=== PATIENT | male | born 1985 | race Caucasian/White ===

== ENCOUNTER 2023-10-10 13:41 | Inpatient (IN) | payer MEDICAID ==
[~2023-10-10] VITALS: Ht 180.3 cm; Wt 56.7 kg
[2023-10-10 15:40] LABS: BASOPHILS # (AUTO) 0.1 K/uL (0.0-0.2); EOSINOPHILS % (AUTO) 0.3 % (0.0-6.0); HEMATOCRIT 35 % (39-51); LYMPHOCYTES # (AUTO) 0.7 K/uL (0.8-4.8); LYMPHOCYTES % (AUTO) 11.5 % (20.0-44.0); MEAN CORPUSCULAR HEMOGLOBIN 31 PG (26.0-33.0); MEAN CORPUSCULAR HGB CONC 34 g/dl (31.0-36.0); MEAN CORPUSCULAR VOLUME 91 fL (80-96); MONOCYTES # (AUTO) 0.5 K/uL (0.1-1.30); NEUTROPHILS # (AUTO) 4.6 K/uL (1.8-8.9); NEUTROPHILS % (AUTO) 78.2 % (43.0-81.0); PLATELET COUNT (AUTO) 113 K/uL (150-450); RED BLOOD CELL COUNT(AUTO) 3.87 MIL/uL (4.5-6.0); RED CELL DISTRIBUTION WIDTH 14.6 % (11.5-15.0); WHITE BLOOD COUNT (AUTO) 5.9 K/uL (4.3-11.0)
[2023-10-10 15:50] LABS: CALCIUM, SERUM 8.6 mg/dL (8.5-10.1); CARBON DIOXIDE 29 mmol/L (21-32); CHLORIDE 86 mmol/L (98-107); CREATININE 0.6 mg/dL (0.6-1.3); GLUCOSE 149 mg/dL (74-106); POTASSIUM 2.9 mmol/L (3.5-5.1); SODIUM SERUM 129 mmol/L (136-145); UREA NITROGEN, BLOOD 10 mg/dL (7-18)
[2023-10-10 15:57] LABS: ALANINE AMINOTRANSFERASE 252 U/L (12-78); ALKALINE PHOSPHATASE 63 U/L (46-116); ASPARTATE AMINOTRANSFERASE 337 U/L (15-37); BILIRUBIN,DIRECT 0.6 mg/dL (0.0-0.2); BILIRUBIN,TOTAL 1.6 mg/dL (0.2-1.0); TOTAL PROTEIN, SERUM 7.4 g/dL (6.4-8.2)
[2023-10-10 15:59] LABS: LIPASE > 375 U/L (16-77)
[2023-10-10 16:01] LABS: INR 0.98 (0.91-1.10); PARTIAL THROMBOPLASTIN TIME 24.4 SEC (24.3-34.3); PROTHROMBIN TIME 10.4 SECS (9.2-11.1)
[2023-10-10] MEDS: IV NS 0.9% 1,000 ML BAG IV ONE (16:12)
[2023-10-10] MEDS ORDERED: METH36TA PO (16:40)
[2023-10-10] MEDS ORDERED: MAG HYDROX/AL HYDROX/SIMETH 30 ML UDC PO PRN (18:30)
[2023-10-10] MEDS ORDERED: MAGNESIUM HYDROXIDE 30 ML UDC PO PRN (18:30)
[2023-10-10] MEDS ORDERED: ONDANSETRON HCL/PF 4 MG/2 ML VIAL IVP PRN (18:30)
[2023-10-10 18:40] VITALS: BP 150/80; TEMP 98.6; O2SAT 98
[2023-10-10] MEDS: THIAMINE HCL 100 MG TABLET PO ONE (18:54)
[2023-10-10] MEDS: FOLIC ACID 1 MG TABLET PO ONE (18:54)
[2023-10-10] MEDS: LORAZEPAM 1 MG TABLET PO ONE (18:54)
[2023-10-10] MEDS: IV NS 0.9% 1,000 ML IV SCH (18:55)
[2023-10-10] MEDS: FAMOTIDINE (20 MG) 20 MG TABLET PO SCH (21:11)
[2023-10-10 22:00] VITALS: BP 140/82; TEMP 99.3; O2SAT 95
[2023-10-10] MEDS: LORAZEPAM 1 MG TABLET PO PRN (22:43)
[2023-10-11] VITALS: BP 138/87; TEMP 99.1; O2SAT 96
[2023-10-11 04:00] VITALS: BP 133/82; TEMP 99.1; O2SAT 96
[2023-10-11 06:47] LABS: BASOPHILS % (AUTO) 0.5 % (0.0-2.0); EOSINOPHILS # (AUTO) 0.1 K/uL (0.0-0.7); EOSINOPHILS % (AUTO) 1.8 % (0.0-6.0); HEMATOCRIT 27 % (39-51); HEMOGLOBIN 9.7 g/dL (13.5-17.5); LYMPHOCYTES # (AUTO) 0.7 K/uL (0.8-4.8); LYMPHOCYTES % (AUTO) 14.8 % (20.0-44.0); MEAN CORPUSCULAR HEMOGLOBIN 32 PG (26.0-33.0); MEAN CORPUSCULAR HGB CONC 36 g/dl (31.0-36.0); MEAN CORPUSCULAR VOLUME 91 fL (80-96); MONOCYTES # (AUTO) 0.3 K/uL (0.1-1.30); MONOCYTES % (AUTO) 7.2 % (2.0-12.0); NEUTROPHILS # (AUTO) 3.6 K/uL (1.8-8.9); NEUTROPHILS % (AUTO) 75.7 % (43.0-81.0); PLATELET COUNT (AUTO) 75 K/uL (150-450); RED BLOOD CELL COUNT(AUTO) 3.01 MIL/uL (4.5-6.0); RED CELL DISTRIBUTION WIDTH 14.6 % (11.5-15.0); WHITE BLOOD COUNT (AUTO) 4.8 K/uL (4.3-11.0)
[2023-10-11 07:14] LABS: CALCIUM, SERUM 8.2 mg/dL (8.5-10.1); CARBON DIOXIDE 28 mmol/L (21-32); CHLORIDE 93 mmol/L (98-107); CREATININE 0.6 mg/dL (0.6-1.3); GLUCOSE 105 mg/dL (74-106); MAGNESIUM 1.4 mg/dL (1.8-2.4); PHOSPHORUS 3.4 mg/dL (2.5-4.9); SODIUM SERUM 132 mmol/L (136-145); UREA NITROGEN, BLOOD 8 mg/dL (7-18)
[2023-10-11 07:20] LABS: LIPASE > 375 U/L (16-77); POTASSIUM 2.8 mmol/L (3.5-5.1)
[2023-10-11 07:43] LABS: CHOLESTEROL 142 mg/dL (<200); HDL CHOLESTEROL 74 mg/dL (40-60); LDL 43 mg/dL (0-99); THYROID STIMULATING HORMONE 1.724 uIU/mL (0.358-3.74); TRIGLYCERIDES 33 mg/dL (30-150)
[2023-10-11 08:00] VITALS: BP 127/81; TEMP 99.2; O2SAT 100
[2023-10-11] MEDS: PANTOPRAZOLE 40 MG VIAL IV SCH (08:01)
[2023-10-11] MEDS: POTASSIUM CHLORIDE 20 MEQ TAB.PRT.SR PO ONE (08:21)
[2023-10-11] MEDS: MAGNESIUM OXIDE 400 MG TABLET PO ONE (10:10)
[2023-10-11 10:58] LABS: ANISOCYTOSIS 1+; BASOPHILS % (MANUAL) 0 % (0.0-2.0); EOSINOPHILS % (MANUAL) 3 % (0-4); LYMPHOCYTES % (MANUAL) 12 % (16-48); MONOCYTES % (MANUAL) 8 % (0-11.0); NEUTROPHILS % (MANUAL) 77 (42-76); PLATELET ESTIMATE DECREASED
[2023-10-11 12:00] VITALS: BP 142/95; TEMP 98.4; O2SAT 98
[2023-10-11] MEDS ORDERED: SIMETHICONE/SOD BICARB/CIT AC 1 EACH GRAN.EF.PK PO ONE (12:18)
[2023-10-11] MEDS ORDERED: BARIUM SULFATE 98% 135 ML SUSP.RECON PO ONE (12:18)
[2023-10-11 16:00] VITALS: BP 146/98; TEMP 98.6; O2SAT 97
[2023-10-11 20:00] VITALS: BP 134/95; TEMP 98.2; O2SAT 98
[2023-10-12] VITALS: BP 136/96; TEMP 99.1; O2SAT 100
[2023-10-12 04:44] VITALS: BP 124/85; TEMP 98.8; O2SAT 98
[2023-10-12 07:28] LABS: ALBUMIN 3.3 g/dL (3.4-5.0); BILIRUBIN,DIRECT 0.5 mg/dL (0.0-0.2); BILIRUBIN,TOTAL 1.7 mg/dL (0.2-1.0); CALCIUM, SERUM 8.5 mg/dL (8.5-10.1); CREATININE 0.5 mg/dL (0.6-1.3); MAGNESIUM 1.8 mg/dL (1.8-2.4); PHOSPHORUS 3.3 mg/dL (2.5-4.9); POTASSIUM 3.2 mmol/L (3.5-5.1); TOTAL PROTEIN, SERUM 6.2 g/dL (6.4-8.2)
[2023-10-12 08:00] VITALS: BP 126/93; TEMP 97.8; O2SAT 97
[2023-10-12 08:38] LABS: BASOPHILS % (AUTO) 0.5 % (0.0-2.0); EOSINOPHILS # (AUTO) 0.1 K/uL (0.0-0.7); EOSINOPHILS % (AUTO) 2.2 % (0.0-6.0); HEMATOCRIT 30 % (39-51); HEMOGLOBIN 10.5 g/dL (13.5-17.5); LYMPHOCYTES # (AUTO) 0.8 K/uL (0.8-4.8); MEAN CORPUSCULAR HEMOGLOBIN 32 PG (26.0-33.0); MEAN CORPUSCULAR HGB CONC 35 g/dl (31.0-36.0); MEAN CORPUSCULAR VOLUME 93 fL (80-96); MONOCYTES # (AUTO) 0.6 K/uL (0.1-1.30); MONOCYTES % (AUTO) 9.8 % (2.0-12.0); NEUTROPHILS # (AUTO) 4.5 K/uL (1.8-8.9); NEUTROPHILS % (AUTO) 74.5 % (43.0-81.0); PLATELET COUNT (AUTO) 85 K/uL (150-450); RED BLOOD CELL COUNT(AUTO) 3.25 MIL/uL (4.5-6.0); RED CELL DISTRIBUTION WIDTH 15.2 % (11.5-15.0)
[2023-10-12] MEDS: PANTOPRAZOLE 40 MG TABLET.DR PO SCH (08:52)
[2023-10-12] MEDS: POTASSIUM CHLORIDE 20 MEQ TAB.PRT.SR PO ONE (08:52)
[2023-10-12] MEDS ORDERED: LORA-259 PO (10:52)
[2023-10-12 11:49] LABS: NEUTROPHILS % (MANUAL) 68 (42-76)
[2023-10-12 11:50] LABS: ANISOCYTOSIS 1+; BAND % (MANUAL) 2 % (0.0-5.0); EOSINOPHILS % (MANUAL) 4 % (0-4); HYPOCHROMASIA 1+; LYMPHOCYTES % (MANUAL) 14 % (16-48); MONOCYTES % (MANUAL) 12 % (0-11.0); PLATELET ESTIMATE DECREASED
[2023-10-12 12:00] VITALS: BP 159/107; TEMP 97.8; O2SAT 100
[2023-10-12] MEDS ORDERED: ENSURE CLEAR 237 ML LIQUID (MIX BERRY) PO SCH (13:00)
== END 2023-10-12 12:35 | disposition home or self-care (01) | DRG 282 ==
LOC: ER 14:29 → TELE-TD 18:16 → TELE1 10-11 12:18
PROVIDERS: ADMIT Nurse Practitioner Acute Care; ATTEND Internal Medicine
DX: K85.20 Alcohol induced acute pancreatitis without necrosis or infection (principal); J98.2 Interstitial emphysema; D69.6 Thrombocytopenia, unspecified; K92.0 Hematemesis; E44.0 Moderate protein-calorie malnutrition; R16.0 Hepatomegaly, not elsewhere classified; K70.10 Alcoholic hepatitis without ascites; E87.1 Hypo-osmolality and hyponatremia; E86.1 Hypovolemia; K29.20 Alcoholic gastritis without bleeding; D64.9 Anemia, unspecified; S30.1XXA Contusion of abdominal wall, initial encounter; F10.239 Alcohol dependence with withdrawal, unspecified; E87.6 Hypokalemia; F90.9 Attention-deficit hyperactivity disorder, unspecified type; R29.6 Repeated falls; R74.01 Elevation of levels of liver transaminase levels; E80.6 Other disorders of bilirubin metabolism; R73.9 Hyperglycemia, unspecified; Y93.9 Activity, unspecified; H93.13 Tinnitus, bilateral; W19.XXXA Unspecified fall, initial encounter; T14.8XXA Other injury of unspecified body region, initial encounter; Y90.9 Presence of alcohol in blood, level not specified; X58.XXXA Exposure to other specified factors, initial encounter; Y92.89 Other specified places as the place of occurrence of the external cause; Z68.1 Body mass index [BMI] 19.9 or less, adult
CPT/HCPCS: 36415; 71045-TC; 71250-TC; 74230-TC; 80048-TC; 80061-TC; 80076-TC; 83690-TC; 83735-TC; 84100-TC; 84443-TC; 85025-TC; 85730-TC; 97112-TC; 97116-TC; 97530-TC; A4223; C9113; G0378; J7030